=== PATIENT | female | born 1990 | race Caucasian/White ===

== ENCOUNTER 2020-11-11 13:08 | Emergency (ER) | payer OTHER ==
[~2020-11-11] VITALS: Ht 160 cm; Wt 61.2 kg
--- NOTE | 2020-11-11 15:07 | EKG ---
[place] [address] ELECTROCARDIOGRAM REPORT Name: JACOB DE LA ROSA Room: [facility]#: [id number] Admission: 11/11/20 Attend Phys: Discharge: Date of : 86 Date of Service: 11/11/20 1315 Report #: [id number] THIS REPORT FOR: //name// [facility] [place] ED Test Date: 2020-11-11 Test Time: 13:15:30 Pat Name: JACOB DE LA ROSA Department: Room: Gender: Media Production Operator: : [id number] Requested By: Philippe Villavicencio Order Number: [id number] MD: Josr Guerrero Measurements Intervals [place] Rate: 76 P: 74 NC: 141 QRS: 66 QRSD: 98 T: 37 QT: 366 QTc: 412 Interpretive Statements Sinus rhythm Probable left atrial enlargement Borderline T abnormalities, anterior leads No previous ECG available for comparison Electronically Signed On 11-11-2020 15:07:42 CDT by Josr Guerrero [email or web address] <ELECTRONICALLY SIGNED> By: Josr Guerrero MD, [facility] 11/11/20 1507 1315 1315 Josr Guerrero MD, FAC /EPI
[2020-11-11 15:15] LABS: ABSOLUTE EOSINOPHILS 0.2 thou/uL (0.0-0.7); ABSOLUTE LYMPHOCYTES 1.7 thou/uL (0.8-5.3); ABSOLUTE MONOCYTES 0.3 thou/uL (0.0-1.2); ABSOLUTE NEUTROPHILS 3.3 thou/uL (1.6-8.1); BASOPHILS 0.9 %; EOSINOPHILS 2.9 %; HEMATOCRIT 35.2 % (37.0-47.0); HEMOGLOBIN 11.7 gm/dL (12.0-15.0); LYMPHOCYTES 30.6 %; MCH 28.4 pg (26.0-34.0); MCHC 33.1 g/dL (28.0-37.0); MCV 85.9 fL (80.0-100.0); MONOCYTES 5.8 %; MPV 8.8 fl. (7.2-11.1); NUCLEATED RBCS 0 /100WBC; PLATELET COUNT* 220 thou/uL (150-400); POLYS 59.8 %; RDW-CV 12.4 % (10.5-14.5); WBC 5.5 thou/uL (4.0-11.0)
[2020-11-11 15:23] LABS: CALCIUM 8.2 mg/dL (8.5-10.1); CREATININE 0.5 mg/dL (0.6-1.3); POTASSIUM 3.9 mmol/L (3.5-5.1)
[2020-11-11 15:34] LABS: ALBUMIN 3.7 g/dL (3.4-5.0); MAGNESIUM 1.7 mg/dL (1.8-2.4); TOTAL BILIRUBIN 0.2 mg/dL (<0.1-1.0); TOTAL PROTEIN 6.8 g/dL (6.4-8.2)
[2020-11-11 17:39] VITALS: BP 120/70
[2020-11-11] MEDS ORDERED: HYDROCODON-ACE1 EAC7 PO (17:42)
== END 2020-11-11 17:48 | disposition home or self-care (01) ==
LOC: M.ERS 13:08
PROVIDERS: Emergency Medicine Emergency Medical Services
DX: R07.89 Other chest pain (principal); Z20.822 Contact with and (suspected) exposure to COVID-19; R06.02 Shortness of breath; R05 Cough